=== PATIENT | male | born 1965 | race Caucasian/White ===

== ENCOUNTER 2021-10-16 08:56 | Emergency (ER) | payer OTHER, SELFPAY ==
[2021-10-16 09:05] VITALS: BP 134/84; PULSE 79; RESP 14; TEMP 36.8; O2SAT 97; BMI 31.1
[2021-10-16 09:10] VITALS: BP 134/86; PULSE 65; RESP 16; O2SAT 98
--- NOTE | 2021-10-16 09:32 | CT_ITS ---
WS: [id number] CT HEAD NONCONTRAST HISTORY: headache x 3 mo, new onset TECHNIQUE: Contiguous axial imaging performed through the brain in 2.5 mm imaging. Bone and soft tiss ue windows. Sagittal and coronal reformats reviewed. All CT scans at [facility] use at least one of these dose optimization techniques: automated exposure control; mA and/or kV adjustment per pa tient size (includes targeted exams where dose is matched to clinical indication); or iterative recon struction. DLP: 1055.08 mGy.cm COMPARISON: None available. No acute intracranial hemorrhage, midline shift or mass effect. Minimal atrophy and small vessel ischemic disease. Ventricles: Normal size with no hydrocephalus. No inferior displacement of cerebellar tonsils. Paranasal sinuses: As visualized are clear. Mastoid air cells: Well pneumatized. Calvarium and scalp: Skull is intact with no soft tissue edema or swelling. CT/CT head wo con* [id number] IMPRESSION: 1. No acute intracranial hemorrhage or edema. 2. Very minimal small vessel ischemic disease. No prior infarct.
--- NOTE | 2021-10-16 09:32 | ECG_ITS ---
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 Measurements Intervals [place] Rate: 65 P: 59 VA: 170 QRS: 52 QRSD: 98 T: 70 QT: 377 QTc: 392 Interpretive Statements SINUS RHYTHM No previous ECG available for comparison Electronically Signed On 10-16-2021 17:30:00 CDT by Isaac Butler M.D. [email or web address]
[2021-10-16 09:49] LABS: Basophils # 0.1 10^3/uL (0.0-0.1); Basophils % 0.9 %; Eosinophils # 0.1 10^3/uL (0.0-0.8); Eosinophils % 2.2 %; Hematocrit 44.7 % (42.0-52.0); Hemoglobin 15.3 g/dL (11.7-16.6); Lymphocytes # 1.6 10^3/uL (0.8-4.8); Lymphocytes % 26.8 %; Mean Corpuscular HGB Conc 34.2 g/dL (30.0-36.0); Mean Corpuscular Hemoglobin 29.5 pg (28.0-34.0); Mean Corpuscular Volume 86.3 fl (80-94); Mean Platelet Volume 10.6 fL (7.4-10.4); Monocytes # 0.5 10^3/uL (0.2-0.9); Monocytes % 8.4 %; Neutrophils % 61.5 %; Nucleated Red Blood Cells % 0 %; Platelet Count 233 10^3/cmm (130-400); Red Blood Count 5.18 10^6/uL (4.1-5.3); Red Cell Distribution Width 11.9 % (12.1-15.1); White Blood Count 5.9 10^3/uL (4.0-10.0)
[2021-10-16 09:53] LABS: Erythrocyte Sedimentation Rate 2 mm/hr (0-10)
[2021-10-16 10:07] LABS: Alanine Aminotransferase 38 U/L (0-41); Albumin Level 4.4 g/dL (3.5-5.2); Alkaline Phosphatase 76 IU/L (40-130); Aspartate Amino Transferase 23 U/L (0-40); Blood Urea Nitrogen 11 mg/dL (6-20); Calcium 8.9 mg/dL (8.5-10.5); Carbon Dioxide 25 mmol/L (22-29); Chloride 105 mmol/L (98-107); Glucose 86 mg/dL (65-115); Osmolality Calculated 291 mOsm/kg (285-295); Sodium 141 mmol/L (136-145); Total Bilirubin 0.4 mg/dL (0.15-1.2); Total Protein 7.4 g/dL (6.6-8.7)
--- NOTE | 2021-10-16 10:43 | CT_ITS ---
WS: [id number] CT ANGIOGRAM CEREBRAL AND CAROTID ARTERIES HISTORY: fx hx of cerebral aneurysm TECHNIQUE: CT angiogram is performed of the carotid and cerebral arteries. During arterial injection imaging is obtained from the skull vertex to the aortic arch in 1.25 mm imaging. Coronal and sagittal reformats are submitted. Additional multi planar reformats of the carotid and cerebral arteries are submitted, MIP imaging also reviewed. NASCET criteria utilized. [facility] CT [facility] at [facility] us e at least one of these dose optimization techniques: automated exposure control; mA and/or kV adjust ment per patient size (includes targeted exams where dose is matched to clinical indication); or iter ative reconstruction. CONTRAST: Omnipaque 350; 95 mL IV. DLP: 586.70 mGy.cm COMPARISON: Noncontrast CT head 10/16/2021. Carotid Angiogram: Right carotid: Common carotid artery: Arises normally from the innominate artery. No significant plaque or stenosis. Internal carotid artery: Small amount of calcified plaque at the bifurcation with no stenosis. External carotid artery: Patent. Left carotid: Common carotid artery: Arises normally from the aorta. No significant plaque or stenosis. Internal carotid artery: Minimal intimal thickening. No stenosis. External carotid artery: Patent. Right vertebral artery: There is a small amount of calcified plaque with a vertebral artery but no hi gh-grade stenosis or occlusion. Left vertebral artery: Unremarkable. Arises normally from the subclavian artery. Subclavian arteries: No stenosis or significant abnormality. Upper thorax: Normal. Thyroid gland: Normal. Osseous structures: Straightening and reversal the normal cervical lordosis centered at C5-6. Moderat e degenerative spondylitic changes in the mid to lower cervical spine. CEREBRAL ANGIOGRAM: Intracranial vertebral arteries: Normal with no significant atherosclerosis. Basilar artery: No significant stenosis or occlusion. No aneurysm. Intracranial Internal carotid arteries: Demonstrates no significant stenosis or plaque. Middle cerebral arteries: Normal. Anterior cerebral arteries and ACOM: Normal. Posterior cerebral arteries and PCOM's: Normal. Dural venous sinuses are normally enhancing. Mastoid air cells: Normal. Paranasal sinuses: Small air-fluid level in the LEFT maxillary sinus. Calvarium: Normal. CT/CT angio headneck* [id number] IMPRESSION: 1. Minimal atherosclerotic plaque in the cervical carotid arteries. 2. No significant carotid artery stenosis. 3. No aneurysm in the [place]. Notified Artis Machuca DO at 10/16/2021 11:57 AM.
--- NOTE | 2021-10-16 10:53 | ED_ITS ---
HPI - Headache General: Chief Complaint: Headache Stated Complaint: Headache Time Seen by Provider: 10/16/21 09:00 Source: patient Mode of arrival: ambulatory Limitations: no limitations History of Present Illness: 56-year-old male presents emergency room with complaint of headache that has had for about the last 3 months. Refers most of it to the temporal region states it is more tender when he wears a hat. He indicates over the left temporal artery but at times it is on the right as well. He states more the headache is to the left he is used some [id number] medications for it. He has not had any vomiting or diarrhea has not had difficulty with speech balance walking or dexterous movements with his hands. No difficulty with swallowing. Mild worsening with exposure to bright lights he has a father who had a cerebral aneurysm. No associated vomiting. Patient is not diabetic no history of hypertension no pertinent surgical history. MD elicited complaint: headache Onset (ago): month(s) (3) Onset description: gradually Location: left and temporal Severity: moderate Quality & Timing: aching and throbbing Exacerbating factors: light Relieving factors: rest and NSAIDs Associated symptoms: Deny chest pain, confusion, cough, diaphoresis, eye pain, eye redness, fever(s), lightheadedness, loss of vision, malaise, nausea, neck stiffness, numbness, paresthesias, photophobia, pre-syncope, rash, seizures, short of breath, sound sensitivity, syncope, vomiting or weakness Review of Systems Const: Denies: fever(s), chills, fatigue, malaise or diaphoresis Eyes: Reports: photophobia (Mild); Denies: change in vision or blurry vision ENMT: Denies: throat pain, ear or mastoid pain, nasal discharge or nasal congestion Card: Denies: chest pain, lightheadedness, syncope or pre-syncope Resp: Denies: dyspnea, productive cough or non-productive cough GI: Denies: abdominal pain, nausea or vomiting : Denies: flank pain, difficulty urinating, dysuria, urinary frequency or urinary urgency Musc: Denies: neck pain Skin/Breast: Denies: rash Neuro: Reports: headache(s); Denies: confusion PFSH ED PFSH: Medical History No pertinent past medical history Surgical History No pertinent past surgical history Family History Father Cerebral aneurysm Social History Smoking and tobacco status: never smoked Alcohol intake: current Alcohol intake frequency: few times a month Physical Exam Const: COMMON NORMALS: no acute distress GENERAL APPEARANCE: cooperative and comfortable ORIENTATION/CONSCIOUSNESS: Yes awake, Yes oriented to person, Yes oriented to place and Yes oriented to time HENMT: COMMON NORMALS: normocephalic, atraumatic, hearing grossly normal bilaterally, external ears normal, EAC's normal, TM's normal bilaterally, Normal nasal mucous membranes and turbinates present, moist oral mucous membranes and oropharynx normal HEAD & SCALP: normocephalic and atraumatic NOSE: Normal nasal mucous membranes and turbinates present EXTERNAL EAR: Yes external ears normal EXTERNAL AUDITORY CANAL: EAC's normal TYMPANIC MEMBRANE: TM's normal bilaterally Eye: COMMON NORMALS: Equal, round and reactive pupils present, EOMs intact bilaterally, conjunctivae normal and no scleral icterus CONJUNCTIVA: Yes conjunctivae normal PUPIL: Yes Equal, round and reactive pupils present DIRECT OPHTHALMOSCOPY: No photophobia Neck/C-Spine: COMMON NORMALS: full ROM, no lymphadenopathy, supple and no JVD Lymph: LYMPHATIC: no lymphadenopathy noted and no lymphedema noted Resp: COMMON NORMALS: normal respiratory effort, No retractions, No use of accessory muscles and clear to auscultation bilaterally AUSCULTATION: clear to auscultation bilaterally Cardio: COMMON NORMALS: no JVD, regular rate, regular rhythm and No murmurs present (Cardio) RATE: regular rate RHYTHM: regular rhythm GI: COMMON NORMALS: Soft to palpation and No hepatosplenomegaly present AUSCULTATION: Yes normoactive bowel sounds PALPATION: Yes Soft to palpation, No Tenderness to palpation present (GI), No Guarding due to palpation present (GI) and Yes No hepatosplenomegaly present Extremity: COMMON NORMALS: normal to inspection, capillary refill normal, no clubbing, cyanosis or edema, no calf tenderness and no pedal edema Neuro: SENSORIUM/ORIENTATION: Yes oriented to person, Yes oriented to place and Yes oriented to time Skin: COMMON NORMALS: no rashes or lesions noted GENERAL SKIN EXAM: no rashes or lesions noted OTHER: Cranial nerves II to XII intact no focal neurologic deficits are noted Course Vital Signs: Vital signs: Vital Signs Temperature 98.3 F 10/16/21 09:05 Pulse Rate 63 10/16/21 11:46 Respiratory Rate 16 10/16/21 09:10 Blood Pressure 135/98 10/16/21 11:46 Pulse Oximetry 96 10/16/21 11:46 MDM - Headache Medical Decision Making CT and CTA of the head and neck are unremarkable discussed with Dr. Maza. All successor Dr. Salinas on-call for neurology. Reviewed the history given she is agreed to see the patient today patient will be discharged from the ER and I will have staff escort him over to Dr. Salinas's office. If she considers appropriate she will schedule outpatient advanced imaging as indicated. Medical Records I reviewed the patient's medical records. Lab Data I reviewed the patient's lab results. : 10/16/21 09:45 10/16/21 09:[address] 10/16/21 09:32 IMPRESSION: 1. No acute intracranial hemorrhage or edema. 2. Very minimal small vessel ischemic disease. No prior infarct. Head/Neck CTA 10/16/21 10:43 IMPRESSION: 1. Minimal atherosclerotic plaque in the cervical carotid arteries. 2. No significant carotid artery stenosis. 3. No aneurysm in the [place]. Notified Artis Machuca DO at 10/16/2021 11:57 AM. Laboratory Results WBC 5.9 10^3/uL (4.0-10.0) 10/16/21 09:45 RBC 5.18 10^6/uL (4.1-5.3) 10/16/21 09:45 Hgb 15.3 g/dL (11.7-16.6) 10/16/21 09:45 Hct 44.7 % (42.0-52.0) 10/16/21 09:45 MCV 86.3 fl (80-94) 10/16/21 09:45 MCH 29.5 pg (28.0-34.0) 10/16/21 09:45 MCHC 34.2 g/dL (30.0-36.0) 10/16/21 09:45 RDW 11.9 % (12.1-15.1) L 10/16/21 09:45 Plt Count 233 10^3/cmm (130-400) 10/16/21 09:45 MPV 10.6 fL (7.4-10.4) H 10/16/21 09:45 Neut % (Auto) 61.5 % 10/16/21 09:45 Lymph % (Auto) 26.8 % 10/16/21 09:45 Dale % (Auto) 8.4 % 10/16/21 09:45 Eos % (Auto) 2.2 % 10/16/21 09:45 Baso % (Auto) 0.9 % 10/16/21 09:45 Neut # (Auto) 3.60 10^3/uL (1.8-7.7) 10/16/21 09:45 Lymph # (Auto) 1.6 10^3/uL (0.8-4.8) 10/16/21 09:45 Dale # (Auto) 0.5 10^3/uL (0.2-0.9) 10/16/21 09:45 Eos # (Auto) 0.1 10^3/uL (0.0-0.8) 10/16/21 09:45 Baso # (Auto) 0.1 10^3/uL (0.0-0.1) 10/16/21 09:45 Nucleated RBC % (auto) 0 % 10/16/21 09:45 Nucleated RBCs # 0.0 /100WBC 10/16/21 09:45 ESR 2 mm/hr (0-10) 10/16/21 09:45 Sodium 141 mmol/L (136-145) 10/16/21 09:45 Potassium 4.0 mmol/L (3.5-5.1) 10/16/21 09:45 Chloride 105 mmol/L (98-107) 10/16/21 09:45 Carbon Dioxide 25 mmol/L (22-29) 10/16/21 09:45 Anion Gap 15.0 (5-19) 10/16/21 09:45 BUN 11 mg/dL (6-20) 10/16/21 09:45 Creatinine 0.8 mg/dL (0.7-1.2) 10/16/21 09:45 GFR Calculation 100.0 mL/min (90-130) 10/16/21 09:45 Glucose 86 mg/dL (65-115) 10/16/21 09:45 Calculated Osmolality 291 mOsm/kg (285-295) 10/16/21 09:45 Calcium 8.9 mg/dL (8.5-10.5) 10/16/21 09:45 Total Bilirubin 0.4 mg/dL (0.15-1.2) 10/16/21 09:45 AST 23 U/L (0-40) 10/16/21 09:45 ALT 38 U/L (0-41) 10/16/21 09:45 Alkaline Phosphatase 76 IU/L (40-130) 10/16/21 09:45 C-Reactive Protein 3.0 mg/L (0.0-4.9) 10/16/21 09:45 Total Protein 7.4 g/dL (6.6-8.7) 10/16/21 09:45 Albumin 4.4 g/dL (3.5-5.2) 10/16/21 09:45 Globulin 3.0 g/dL (1.3-4.6) 10/16/21 09:45 Discharge Plan Discharge Patient Disposition: Home Clinical Impression: Headache Prescriptions: No Action Advil 200 mg Tablet 400 mg PO Q6H PRN (Reason: Headache/pain) 0RF Excedrin Migraine 250-250-65 mg Tablet 2 tab PO Q6H PRN (Reason: Migraine Headache) 0RF Discharge Orders: Discharge ED (Routine); Ordered 10/16/21 Ordered By: Artis Machuca Discharge Diet: Usual diet Discharge Activity: Resume usual activity Patient Instructions: Opioid Safety Activity Restrictions/Additional Instructions: Results of the head CTA will be reviewed with you by Dr. Salinas. Staff will take you to her office she will see you for evaluation this morning. Coding Level of Care Code ED Neuro Urologist for Jose Miguelg Fwd Exam Comprehensive
[2021-10-16] MEDS: iohexol 350 mg/mL 100 mL Btl IV (11:03)
[2021-10-16 11:10] VITALS: BP 134/81; PULSE 68; O2SAT 96
[2021-10-16 11:46] VITALS: BP 135/98; PULSE 63; O2SAT 96
== END 2021-10-16 11:40 | disposition home or self-care (01) ==
PROVIDERS: Emergency Provider Family Medicine
DX: R51.9 Headache, unspecified (principal)
CPT/HCPCS: 70450; 70496; 70498; 80053; 85025; 85651; 86140; 93005; 99285; Q9967

== ENCOUNTER 2021-12-04 09:59 | Outpatient (CLI) | payer OTHER, SELFPAY ==
--- NOTE | 2021-12-04 10:15 | MR_ITS ---
WS: [id number] MRI CERVICAL SPINE NONCONTRAST TECHNIQUE: Sagittal T1, T2 and STIR imaging. Axial T2, gradient, and fiesta imaging. CLINICAL INFORMATION: R51.9 - Headache, unspecified COMPARISON: None. FINDINGS: Straightening of the normal cervical lordosis. Mild spondylitic changes. Anterior hypertrophic change s in the mid cervical spine. Disc space narrowing worse at C5-C6. C2-C3: Mild facet arthropathy. Mild LEFT foraminal narrowing. Spinal canal and RIGHT foramen are puga nt. C3-C4: Mild disc osteophyte complex with endplate ridging. Moderate LEFT greater than RIGHT bony fora vince narrowing. Mild facet arthropathy with uncovertebral joint hypertrophy. Mild central canal sten osis. C4-C5: Disc osteophyte complex with mild central canal stenosis. Moderate LEFT and mild RIGHT bony fo raminal narrowing. Mild facet arthropathy. Mild central canal stenosis. C5-C6: Disc osteophyte complex with endplate ridging. Mild central canal stenosis. Severe LEFT and mo derate to severe RIGHT bony foraminal narrowing. Uncovertebral joint hypertrophy. Mild central canal stenosis. C6-C7: Disc osteophyte complex with endplate ridging. Severe LEFT and moderate to severe RIGHT bony f oraminal narrowing. Uncovertebral joint hypertrophy. C7-T1: Disc osteophytic ridging. Moderate to severe bilateral bony foraminal narrowing. Spinal canal is patent. Visualized brain stem structures: Normal. Prevertebral soft tissues: Normal. MR/MR cervical spin wo con* [id number] IMPRESSION: 1. Straightening of the normal cervical lordosis. Moderate spondylitic changes . Cord signal is normal. 2. Mild central canal stenosis C3-C4 and C4-C5 due to disc osteophyte complexe s. Mild central canal stenosis C5-C6. 3. Moderate to severe bony foraminal narrowing worse at bilateral C5-C6, bilat eral C6-C7 worse in the LEFT, and bilateral C7-T1.
== END 2021-12-04 10:00 | disposition home or self-care (01) ==
LOC: RAD 10:00
PROVIDERS: Visit Provider Specialist
DX: R51.9 Headache, unspecified (principal); M54.2 Cervicalgia; M48.02 Spinal stenosis, cervical region; M48.00 Spinal stenosis, site unspecified
CPT/HCPCS: 72141